=== PATIENT | female | born 1955 | race Caucasian/White ===

== ENCOUNTER 2016-03-23 14:41 | Outpatient (CLI) ==
[2012-07-24 09:18] VITALS: TEMP 99.1
[2015-09-05 12:07] VITALS: BMI 26.8
[2016-03-23 15:13] LABS: BASOPHILS # (AUTO) 0.1 K/uL (0-0.2); BASOPHILS % (AUTO) 0.9 % (0.0-3.0); EOSINOPHILS # (AUTO) 0.5 K/ul (0.0-0.7); EOSINOPHILS % (AUTO) 6.4 % (0.0-7.0); HEMATOCRIT 39.9 % (37.0-47.0); HEMOGLOBIN 13.3 g/dl (12.0-16.0); IMMATURE GRANULOCYTE % (AUTO) 0.1 % (0.0-5.0); LYMPHOCYTES # (AUTO) 3.9 K/uL (0.60-3.4); LYMPHOCYTES % (AUTO) 45.4 (10.0-50.0); MEAN CORPUSCULAR HEMOGLOBIN 30.6 pg (27.0-31.0); MEAN CORPUSCULAR HGB CONC 33.3 (31.8-35.4); MEAN CORPUSCULAR VOLUME 91.9 fl (81.0-99.0); MONOCYTES # (AUTO) 0.8 K/uL (0.4-2.0); MONOCYTES % (AUTO) 9.4 (0-10); NEUTROPHILS # (AUTO) 3.2 K/ul (2.0-6.9); NEUTROPHILS % (AUTO) 37.8; PLATELET COUNT 269 10^3/uL (140-440); RED BLOOD COUNT 4.34 10^6/ul (4.20-5.40)
[2016-03-23 15:20] LABS: ALBUMIN 3.7 g/dL (3.4-5.0); ALBUMIN/GLOBULIN RATIO 1.03; ANION GAP 12.9; BILIRUBIN,TOTAL 0.18 mg/dL (0.00-1.20); BUN/CREATININE RATIO 12.94; CALCIUM 9.6 mg/dL (8.2-10.2); CREATININE 0.85 mg/dL (0.60-1.30); POTASSIUM 3.9 mmol/L (3.5-5.10); TOTAL PROTEIN 7.3 g/dL (6.4-8.2)
--- NOTE | 2016-03-23 15:51 | DI ---
EXAM: Cervical spine three view HISTORY: Cevicalgia COMPARISON: None TECHNIQUE: Three-view cervical spine were performed FINDINGS: Vertebral bodies normal height. No fracture. Multilevel marginal osteophyte formation. Multilevel intervertebral space narrowing with mild to moderate intervertebral disc is narrowing at C4-C5 and C5-C6 and C6-C7. Multilevel facet and uncovertebral hypertrophy. No subluxation. Strai ghtening of the normal cervical lordosis. Prevertebral soft tissues appear normal. IMPRESSION: 1. Chronic discogenic degenerative disease and facet arthrosis 2. Straightening of the normal cervical lordosis.
== END 2016-03-23 14:42 | disposition home or self-care (01) ==
LOC: RAD 14:41
PROVIDERS: ATTEND General Practice
DX: E78.5 Hyperlipidemia, unspecified (principal); I10 Essential (primary) hypertension; E11.9 Type 2 diabetes mellitus without complications; R53.83 Other fatigue; M54.2 Cervicalgia; F19.20 Other psychoactive substance dependence, uncomplicated; M54.5 Low back pain
CPT/HCPCS: 36415; 80053; 80061; 83036; 84443; 85025

== ENCOUNTER 2016-04-12 09:59 | Emergency (ER) ==
[2016-04-12 10:03] VITALS: BP 144/80; TEMP 97.3; BMI 26.6
--- NOTE | 2016-04-12 10:35 | ED.PDOC ---
General ED Provider: Dr. LASHA HA JR Chief Complaint: Earache Stated Complaint: states she might have a bug in her right ear, complains of itching, aching, and making her dizzy. states when it first started felt like something moving around in her ear. [ End ] Time Seen by Physician: 10:29 Mode of Arrival: Walk-In Information Source: Patient Exam Limitations: No limitations Primary Care Provider[facility] Nursing and Triage Documentation Reviewed and Agree: No EENT Complaint Exam - Ear Complaint/Exam Onset/Duration: 3d Symptoms Are: Still present Timing: Intermittent Initial Severity: Moderate Current Severity: Moderate Character: Reports: Dizzy, Dull pain Aggravating: Reports: Foreign body Alleviating: Reports: None Associated Signs and Symptoms: Denies: Ear trauma, Ear swelling, Discharge, Fever, Hearing loss, Bleeding, Sore throat, Headache, URI symptoms, Foreign body sensation, Rash, Pain to external ear, Pain to external face Ear Surgical History: None Vesicles to External Pinna: No Vesicles to Tragus: No TMJ Tenderness: None Mastoid Tenderness: None Tragal Tenderness: None External Canal: Normal Material in Canal: Present: Cerumen (right) Differential Diagnoses: Otitis Externa (left ear ), Abrasion (right ear) Review of Systems - Review Of Systems Constitutional: Reports: No symptoms Eyes: Reports: No symptoms Ears, Nose, Mouth, Throat: Reports: Ear pain Respiratory: Reports: No symptoms Cardiac: Reports: No symptoms GI: Reports: No symptoms : Reports: No symptoms Musculoskeletal: Reports: No symptoms Skin: Reports: No symptoms Neurological: Reports: No symptoms All Other Systems: Other Past Medical History - Past Medical History Previously Healthy: No Endocrine: Reports: DM 2, Dyslipidemia Cardiovascular: Reports: CAD, [place], Hypertension Respiratory: Reports: None Hematological: Reports: None Gastrointestinal: Reports: None Genitourinary: Reports: None Neuro/Psych: Reports: None Musculoskeletal: Reports: None Cancer: Reports: None Last Menstrual Period: none Other Pertinent Past Medical History: HEART ATTACK 2007 - Surgical History General Surgical History: Reports: Hysterectomy, Tubal ligation, Cholecystectomy , Other (BLADDER SX), Unknown - Family History Family History: Reports: Unknown - Social History Smoking Status: Current every day smoker, Heavy tobacco smoker Hx Substance Use: No Alcohol Screening: None Physical Exam - Physical Exam Appearance: Well-appearing Pain Distress: Moderate Eyes: GINO ENT: Nose normal, Oropharynx normal, Erythema Neck: Supple Respiratory: Airway patent, Breath sounds clear, Breath sounds equal, Respirations nonlabored Procedures - Cerumen Removal Location: Right ear Instrument Used: Otoscope, Other Irrigation Used: No Results: Wax, Other (sligth BRB) Pain Successfully Reduced: No (change in character) Critical Care Note - Critical Care Note Total Time (mins): 0 Course - Course Vital Signs: Temp Pulse Resp BP Pulse Ox 04/12/16 09:59 97.3 F L 68 18 144/80 H 96 Departure - Departure Time of Disposition: 10:39 Disposition: HOME SELF-CARE Discharge Problem: Excessive cerumen in right ear canal Otitis externa Qualifiers: Laterality: left Chronicity: acute Instructions: Otitis Externa (ED) Condition: Good Pt referred to PMD for follow-up: Yes Additional Instructions: recommend operator bearer systems exam of right ear return if worse Cortisporin drops for three days Motrin or Aleve for pain for one or two days return if worse Allergies/Adverse Reactions: Allergies codeine Adverse Reaction (Verified 04/12/16 10:04) FEELS FUNNY morphine Adverse Reaction (Verified 04/12/16 10:04) Itching sulfamethoxazole [From Bactrim] Adverse Reaction (Verified 04/12/16 10:04) PASSED OUT trimethoprim [From Bactrim] Adverse Reaction (Verified 04/12/16 10:04) PASSED OUT Home Medications: Ambulatory Orders Aspirin [Aspirin EC] 81 mg PO DAILY 07/22/12 Clopidogrel Bisulfate [Clopidogrel] 75 mg PO EVERY OTHER DAY 05/04/14 Hydrocodone Bit/Acetaminophen [[place] 5-325] 1 tab PO BID PRN 10/29/14 Amlodipine Besylate 5 mg PO d 08/10/15 Bupropion HCl [Wellbutrin Sr] 150 mg PO BEDTIME #30 09/24/15 Lorazepam 0.5 mg PO BID #60 09/24/15 Trazodone HCl 100 mg PO PRN PRN #30 09/24/15 Atenolol 50 mg PO DAILY #30 tab-cap 02/16/16 Cyclobenzaprine HCl 10 mg PO BID PRN #30 tab-cap 02/16/16 Fenofibrate [Triglide] 160 mg PO DAILY #30 tab-cap 02/16/16 Simvastatin 20 mg PO BEDTIME #30 tab-cap 02/16/16 Neomycin/Polymyxin B/Hc Otic [Cortisporin Otic Susp] 4 drop OT Q6H #1 bottle
[2016-04-12] MEDS ORDERED: CORTISPORIN OTIC SUSP OT ONE ×2 (10:37→10:46)
== END 2016-04-12 10:58 | disposition home or self-care (01) ==
LOC: ED 09:59
DX: H60.502 Unspecified acute noninfective otitis externa, left ear (principal); H61.21 Impacted cerumen, right ear; F17.210 Nicotine dependence, cigarettes, uncomplicated
CPT/HCPCS: 99282

== ENCOUNTER → 2016-05-10 | Outpatient (POV) ==
[2012-07-24 09:18] VITALS: TEMP 99.1
[2016-04-12 10:03] VITALS: BMI 26.6
== END ==
LOC: OUTPT 00:01
PROVIDERS: ATTEND Otolaryngology
DX: H91.90 Unspecified hearing loss, unspecified ear (principal)
CPT/HCPCS: 92557; 92567

== ENCOUNTER 2016-07-17 12:48 | Emergency (ER) ==
[2016-07-17 12:49] VITALS: BMI 26.6
[2016-07-17 12:54] VITALS: BP 148/88; TEMP 98.4
--- NOTE | 2016-07-17 13:07 | ED.PDOC ---
General ED Provider: Dr. LASHA HA JR Chief Complaint: Abdominal Pain Stated Complaint: pain to left lower quad--pain sharp is constant--had emesis-- hx gerd--no diarrhea or fever--has nausea[End]since last night 98.4 84 16 93% 148/88 7/10 diffuse abd tenderness worst in LLQ no prior episodes has had dysuria itching onfrequent incontinence urine in past Time Seen by Physician: 13:06 Mode of Arrival: Walk-In Information Source: Patient Exam Limitations: No limitations [facility] and T[facility] Documentation Reviewed and Agree: No Review of Systems - Review Of Systems Constitutional: Reports: Malaise Eyes: Reports: No symptoms Ears, Nose, Mouth, Throat: Reports: No symptoms Respiratory: Reports: No symptoms Cardiac: Reports: No symptoms GI: Reports: Abdominal pain, Nausea : Reports: Dysuria, Frequency, Pain Musculoskeletal: Reports: No symptoms Skin: Reports: No symptoms Neurological: Reports: No symptoms Endocrine: Reports: No symptoms Hematologic/Lymphatic: Reports: No symptoms All Other Systems: Other Past Medical History - Past Medical History Previously Healthy: No Endocrine: Reports: DM 2, Dyslipidemia Cardiovascular: Reports: CAD, [place] (HEART ATTACK 2007), Hypertension Respiratory: Reports: None Hematological: Reports: None Gastrointestinal: Reports: GERD Genitourinary: Reports: None Neuro/Psych: Reports: None Musculoskeletal: Reports: None Cancer: Reports: None Last Menstrual Period: hysterectomy Other Pertinent Past Medical History: HEART ATTACK 2007 - Surgical History General Surgical History: Reports: Hysterectomy, Tubal ligation, Cholecystectomy , Other (BLADDER SX), Unknown - Family History Family History: Reports: Unknown - Social History Smoking Status: Current every day smoker, Heavy tobacco smoker Hx Substance Use: No Alcohol Screening: None Physical Exam - Physical Exam Appearance: Well-appearing Pain Distress: Moderate Eyes: GINO, EOMI, Conjunctiva clear ENT: Ears normal, Nose normal, Oropharynx normal Neck: Supple Respiratory: Airway patent, Breath sounds equal, Respirations nonlabored, Rhonchi Cardiovascular: RRR, Pulses normal, No rub, No murmur GI/: Soft, No masses, Tender, Bowel sounds hypoactive Musculoskeletal: Normal strength, ROM intact, No edema, No calf tenderness Skin: Warm, Dry, Normal color Neurological: Sensation intact, Motor intact, Reflexes intact, Cranial nerves intact, Alert, Oriented Psychiatric: Affect appropriate, Mood appropriate Interpretation - Radiology Interpretation Radiology Interpretation By: Radiologist Radiology Results: Negative Exam Interpreted: CT Scan (abdomen) Critical Care Note - Critical Care Note Total Time (mins): 0 Course - Course Hematology/Chemistry: 07/17/16 13:10 07/17/16 13:10 Orders, Labs, Meds: Lab Review 07/17/16 07/17/16 13:05 13:10 WBC 7.66 RBC 4.55 Hgb 14.0 Hct 41.1 MCV 90.3 MCH 30.8 MCHC 34.1 RDW Coeff of Sorin 13.2 Plt Count 246 Immature Gran % (Auto) 0.1 Neut % (Auto) 41.7 Lymph % (Auto) 41.6 [place] % (Auto) 10.2 H Eos % (Auto) 5.6 Baso % (Auto) 0.8 Immature Gran # (Auto) 0.0 Neut # 3.2 Lymph # 3.2 [place] # 0.8 Eos # 0.4 Baso # 0.1 Sodium 140 Potassium 3.7 Chloride 104 Carbon Dioxide 26 Anion Gap 13.7 BUN 9 Creatinine 0.81 Estimated GFR (MDRD) 73.00 BUN/Creatinine Ratio 11.11 Glucose 89 Calcium 9.6 Total Bilirubin 0.27 AST 28 ALT 33 Alkaline Phosphatase 48 Total Protein 7.5 Albumin 3.9 Globulin 3.6 Albumin/Globulin Ratio 1.08 Amylase 66 Lipase 38 Urine Color Yellow Urine Clarity Slightly Urine pH 8.5 Ur Specific [place] 1.015 Urine Protein Negative Urine Glucose (UA) Trace Urine Ketones Negative Urine Blood Negative Urine Nitrite Negative Urine Bilirubin Negative Urine Urobilinogen 0.2 Ur Leukocyte Esterase Negative Ur Squamous Epith Cells Not present Amorphous Sediment 2+ H. pylori IgG Antibody Negative Orders Category Date Time Status ED IV/MEDIPORT/POWERPORT .ONCE EMERGENCY 07/17/16 13:05 Active AMYLASE Stat LAB 07/17/16 13:10 Completed CBC W/ AUTO DIFF Stat LAB 07/17/16 13:10 Completed COMPREHENSIVE METABOLIC PANEL Stat LAB 07/17/16 13:10 Completed H. PYLORI SCREEN Stat LAB 07/17/16 13:10 Completed LIPASE Stat LAB 07/17/16 13:10 Completed URINALYSIS C & S IF INDICATED Stat LAB 07/17/16 13:05 Completed 0.9 % Sodium Chloride [Saline Flush] MEDS 07/17/16 13:05 Ordered 1 syr IVF PRN PRN CT ABDOMEN/PELVIS WO CONTRAST Stat RADS 07/17/16 13:05 Completed Medications Generic Name Dose Route Start Last Admin Trade Name Keisha PRN Reason Stop Dose Admin Sodium Chloride 1 syr 07/17/16 13:05 Saline Flush IVF PRN PRN To flush IV Vital Signs: Temp Pulse Resp BP Pulse Ox 07/17/16 12:49 98.4 F 84 16 148/88 H 93 L Departure - Departure Time of Disposition: 14:09 Disposition: HOME SELF-CARE Discharge Problem: Abdominal pain Instructions: Acute Abdominal Pain (ED), Abdominal Pain (ED) Condition: Good Pt referred to PMD for follow-up: Yes Additional Instructions: follow up with your physician discuss abdominal pain discuss vaginal symptoms consider pelvic exam Flagyl (antibiotic) for symptoms consistent with diverticulitis no diverticulitis on CT scan Allergies/Adverse Reactions: Allergies codeine Adverse Reaction (Verified 07/17/16 12:57) FEELS FUNNY morphine Adverse Reaction (Verified 07/17/16 12:57) Itching sulfamethoxazole [From Bactrim] Adverse Reaction (Verified 07/17/16 12:57) PASSED OUT trimethoprim [From Bactrim] Adverse Reaction (Verified 07/17/16 12:57) PASSED OUT Home Medications: Ambulatory Orders Aspirin [Aspirin EC] 81 mg PO DAILY 07/22/12 Clopidogrel Bisulfate [Clopidogrel] 75 mg PO EVERY OTHER DAY 05/04/14 Hydrocodone Bit/Acetaminophen [[place] 5-325] 1 tab PO BID PRN 10/29/14 Bupropion HCl [Wellbutrin Sr] 150 mg PO BEDTIME #30 09/24/15 Lorazepam 0.5 mg PO BID #60 09/24/15 Trazodone HCl 100 mg PO PRN PRN #30 09/24/15 Cyclobenzaprine HCl 10 mg PO BID PRN #30 tab-cap 02/16/16 Fenofibrate [Triglide] 160 mg PO DAILY #30 tab-cap 02/16/16 Simvastatin 20 mg PO BEDTIME #30 tab-cap 02/16/16
[2016-07-17 13:15] LABS: BASOPHILS # (AUTO) 0.1 K/uL (0-0.2); BASOPHILS % (AUTO) 0.8 % (0.0-3.0); EOSINOPHILS # (AUTO) 0.4 K/ul (0.0-0.7); EOSINOPHILS % (AUTO) 5.6 % (0.0-7.0); HEMATOCRIT 41.1 % (37.0-47.0); IMMATURE GRANULOCYTE % (AUTO) 0.1 % (0.0-5.0); LYMPHOCYTES # (AUTO) 3.2 K/uL (0.60-3.4); LYMPHOCYTES % (AUTO) 41.6 (10.0-50.0); MEAN CORPUSCULAR HEMOGLOBIN 30.8 pg (27.0-31.0); MEAN CORPUSCULAR HGB CONC 34.1 (31.8-35.4); MEAN CORPUSCULAR VOLUME 90.3 fl (81.0-99.0); MONOCYTES # (AUTO) 0.8 K/uL (0.4-2.0); MONOCYTES % (AUTO) 10.2 (0-10); NEUTROPHILS # (AUTO) 3.2 K/ul (2.0-6.9); NEUTROPHILS % (AUTO) 41.7; PLATELET COUNT 246 10^3/uL (140-440); RED BLOOD COUNT 4.55 10^6/ul (4.20-5.40); WHITE BLOOD COUNT 7.66 K/ul (4.6-10.2)
[2016-07-17 13:26] LABS: H. PYLORI ANTIBODY NEGATIVE (NEGATIVE); H.PYLORI INTERNAL QC INTERNAL QC VALID
[2016-07-17 13:30] LABS: BILIRUBIN,URINE Negative (NEGATIVE); KETONES,URINE Negative (NEGATIVE); LEUKOCYTE ESTERASE ,URINE Negative (NEGATIVE); NITRITE,URINE Negative (NEGATIVE); PH,URINE 8.5 (5-9); PROTEIN,URINE Negative (NEGATIVE); URINE, BLOOD Negative (NEGATIVE)
[2016-07-17 13:32] LABS: ADD URINE MICROSCOPIC YES
--- NOTE | 2016-07-17 13:34 | CT ---
EXAM: CT of the abdomen pelvis without contrast History: Left lower quadrant abdominal pain and vomiting. Comparison: CT abdomen pelvis 10/29/2014 Technique: Multiplanar CT images through the abdomen pelvis were obtained without the administratio n of IV contrast Findings: Lung bases are free of consolidation. No acute osseous abnormalities. A small hiatal hernia. No renal stones and no hydronephrosis. No renal stones and no hydronephrosis . No peripancreatic inflammation. Adrenal glands are unremarkable. Status post cholecystectomy. No focal liver or splenic lesions. No bowel obstruction. Scattered colonic stool. No bladder wall thickening. Uterus is not seen. No adnexal masses. No perirectal inflammation. No inflammatory stranding. Atherosclerotic vascular calcifications. Impression: No acute intra-abdominal or pelvic process.
[2016-07-17 13:51] LABS: ALBUMIN 3.9 g/dL (3.4-5.0); ALBUMIN/GLOBULIN RATIO 1.08; ANION GAP 13.7; BILIRUBIN,TOTAL 0.27 mg/dL (0.00-1.20); BUN/CREATININE RATIO 11.11; CALCIUM 9.6 mg/dL (8.2-10.2); CREATININE 0.81 mg/dL (0.60-1.30); POTASSIUM 3.7 mmol/L (3.5-5.10); TOTAL PROTEIN 7.5 g/dL (6.4-8.2)
== END 2016-07-17 14:23 | disposition home or self-care (01) ==
LOC: ED 12:48
DX: R10.32 Left lower quadrant pain (principal); R11.2 Nausea with vomiting, unspecified; R30.0 Dysuria; R35.0 Frequency of micturition; E11.9 Type 2 diabetes mellitus without complications; E78.5 Hyperlipidemia, unspecified; I25.10 Atherosclerotic heart disease of native coronary artery without angina pectoris; I10 Essential (primary) hypertension; K21.9 Gastro-esophageal reflux disease without esophagitis; I25.2 Old myocardial infarction; F17.210 Nicotine dependence, cigarettes, uncomplicated; Z79.899 Other long term (current) drug therapy
CPT/HCPCS: 36415; 80053; 81001; 82150; 83690; 85025; 86677; 99283

== ENCOUNTER 2016-08-04 17:33 | Outpatient (CLI) ==
[2012-07-24 09:18] VITALS: TEMP 99.1
== END 2016-08-04 17:34 | disposition home or self-care (01) ==
LOC: CAR 17:33
PROVIDERS: ATTEND Physician Assistant
DX: G47.30 Sleep apnea, unspecified (principal)
CPT/HCPCS: 95810

== ENCOUNTER 2016-08-05 09:56 | Outpatient (CLI) ==
[2012-07-24 09:18] VITALS: TEMP 99.1
--- NOTE | 2016-08-08 12:15 | MAMMO ---
EXAM: Digital screening mammogram HISTORY: Screening COMPARISON: 11/30/2014 FINDINGS: Digital MLO and CC views of the right and left breast were performed. There are scatter ed fibroglandular densities. Stable benign bilateral calcifications. There is a right breast asymme try in the medial breast 6.5 cm from the nipple, CC view. There is no evidence for mass, asymmetry, distortion, or suspicious calcifications in left breast. IMPRESSION: 1. Right breast asymmetry. Recommend diagnostic mammogram and possible ultrasound for further eval uation 2. No mammographic evidence of malignancy left breast. BIRADS category 0, incomplete
== END 2016-08-05 09:57 | disposition home or self-care (01) ==
LOC: RAD 09:56
PROVIDERS: ATTEND Physician Assistant
DX: Z12.31 Encounter for screening mammogram for malignant neoplasm of breast (principal)

== ENCOUNTER 2016-10-04 16:07 | Outpatient (CLI) ==
[2012-07-24 09:18] VITALS: TEMP 99.1
== END 2016-10-04 16:08 | disposition home or self-care (01) ==
LOC: CAR 16:07
PROVIDERS: ATTEND Physician Assistant
DX: G47.33 Obstructive sleep apnea (adult) (pediatric) (principal)
CPT/HCPCS: 95811

== ENCOUNTER 2016-12-30 15:30 | Outpatient (CLI) ==
[2012-07-24 09:18] VITALS: TEMP 99.1
[2016-12-30 15:54] LABS: BASOPHILS # (AUTO) 0.1 K/uL (0-0.2); BASOPHILS % (AUTO) 0.8 % (0.0-3.0); EOSINOPHILS # (AUTO) 0.4 K/ul (0.0-0.7); EOSINOPHILS % (AUTO) 3.6 % (0.0-7.0); HEMATOCRIT 43.8 % (37.0-47.0); HEMOGLOBIN 14.6 g/dl (12.0-16.0); IMMATURE GRANULOCYTE % (AUTO) 0.2 % (0.0-5.0); LYMPHOCYTES # (AUTO) 3.7 K/uL (0.60-3.4); MEAN CORPUSCULAR HEMOGLOBIN 30.2 pg (27.0-31.0); MEAN CORPUSCULAR HGB CONC 33.3 (31.8-35.4); MEAN CORPUSCULAR VOLUME 90.7 fl (81.0-99.0); MONOCYTES # (AUTO) 0.9 K/uL (0.4-2.0); MONOCYTES % (AUTO) 9.2 (0-10); NEUTROPHILS # (AUTO) 4.6 K/ul (2.0-6.9); NEUTROPHILS % (AUTO) 48.2; PLATELET COUNT 298 10^3/uL (140-440); RED BLOOD COUNT 4.83 10^6/ul (4.20-5.40); WHITE BLOOD COUNT 9.63 K/ul (4.6-10.2)
[2016-12-30 17:37] LABS: ALBUMIN 3.9 g/dL (3.4-5.0); ALBUMIN/GLOBULIN RATIO 0.85; ANION GAP 14.1; BILIRUBIN,TOTAL 0.16 mg/dL (0.00-1.20); BUN/CREATININE RATIO 13.33; CALCIUM 10.8 mg/dL (8.2-10.2); CHOL/HDL RATIO 4.6 (4.5-5.5); CREATININE 0.75 mg/dL (0.60-1.30); POTASSIUM 4.1 mmol/L (3.5-5.10); TOTAL PROTEIN 8.5 g/dL (6.4-8.2)
== END 2016-12-30 15:31 | disposition home or self-care (01) ==
LOC: NONPT 15:30
PROVIDERS: ATTEND Emergency Medicine
DX: E11.69 Type 2 diabetes mellitus with other specified complication (principal); I10 Essential (primary) hypertension; I21.3 ST elevation (STEMI) myocardial infarction of unspecified site
CPT/HCPCS: 80053; 80061; 83036; 84443; 85025

== ENCOUNTER 2017-03-14 14:00 | Outpatient (RCR) ==
[2012-07-24 09:18] VITALS: TEMP 99.1
--- NOTE | 2017-02-21 16:17 | RS.OPPTEV2 ---
Date of Note: 02/21/17 Visit #: 1 Date of Evaluation: 02/21/17 Payer Source: Medicaid Date of Onset/Injury/Change in Status: 02/11/17 Surgery Performed?: No Treatment Diagnosis: CVA with R sided weakness History of Condition/Mechanism of Injury:: pt reports she was at [employer] waiting to see her daughter who works there and lost her balance falling into a truck that was on display. pt states she noted her RLE and R UE were numb and drove herself to the hospital. Prior Level of Function.....Patient was independent with: ADL's, Self Care, Ambulation/Mobility, Community Integration/Access Functional Limitations: ADL's, Pulling, Lifting, Ambulation, Community Access/ Integration Current Subjective/complaints:: pt states she does not feel well today, reports that she has still been having headaches and just feeling weak. Treatment Side (optional): Right *Precautions: fall precautions Medical History Surgical History: Cholecystectomy, Hysterectomy Surgical History Comments:: coronary stent Smoking Status: Current every day smoker Hx Home Medications: simvastatin, lisinopril, atenolol, rantinidine, wellbutrin , blood thinner(unsure of the name) Patient's Goals: "get better" Pain Assessment - Pain Description Pain Location: headache Pain Description: Aching Current Pain Intensity: 7 Functional Outcome Measure LE Functional Scale: 39 (51%) - G Codes & Severity Modifier G Codes & Modifier: n/a Source of G Code score: n/a Observation - Observation Posture: Forward Head, Rounded Shoulders, Increased Thoracic Kyphosis Handedness: Right Gait - Gait Pattern General Gait Pattern Observation: Crouched Gait, Decrease Stride Lngth (R), Decrease Stride Lngth (L) Gait Comments: slight ataxic gait noted General Range of Motion: WFL's all 4 extr's Muscle Strength: BUE grossly 4+/5. RLE hip flex 3+/5, knee flex 3+/5, ext 4-/5 , ankle DF/PF 3+/5. LLE hip flex 4-/5, knee flex 4+/5, ext 4+/5, ankle DF/PF 4+ /5 Palpation Palpation Findings: None/Normal Sensation - Sensation Right Upper Extremity: Impaired Left Upper Extremity: Intact/Normal Right Lower Extremity: Impaired (pt with numbness and tingling RLE and RUE) Left Lower Extremity: Intact/Normal Balance - Sitting Balance Static Sitting Balance: Good Dynamic Sitting Balance: Good - Standing Balance Static Standing Balance: Fair Dynamic Standing Balance: Fair - Comments Balance Assessment Comments: TUG score 32 secs. Tinetti score 17/28. Balance master limits of stability time to complete 125secs Interventions - Exercise/Activities/Manual Therapy Exercises/Activities: pt performed BLE AP, LAQ, seated hip flex, ball squeezes x 5-10 reps Manual Therapy: n/a HOME EXERCISE PROGRAM: pt given written HEP including AP, LAQ, seated hip flex, ball squeezes and given yellow theraputty for R hand. - Charges Timed Code Treatment Minutes: 52 Total Treatment Time: 64 Procedures billed for this date of service:: eval med Assessment Assessment: pt presents with decreased strength, balance, as well as gait instability s/p CVA. pt also with decreased fine motor skills with R hand. Patient Education: Home Exercise Program, Education of Plan of Care Rehab Potential: Good Short Term Goals Goal #1: pt demonstrate improved RLE strength 4- to 4/5 Goal to be met by: 03/07/17 Goal #2: pt amb in dept with improved gait sequencing with no LOB Goal to be met by: 03/07/17 Goal #3: pt with improved TUG score <30 sec Goal to be met by: 03/07/17 Community Health Agent Goals Goal #1: pt demonstrates improved RLE strength 4/5 and independent with HEP Goal to be met by: 03/23/17 Goal #2: pt demonstrate improved dyn stand balance as noted by tinetti Goal to be met by: 03/23/17 Goal #3: pt amb functional distances with no LOB and improved sequencing Goal to be met by: 03/23/17 Goal #4: LE functional index score >50 Goal to be met by: 03/23/17 Plan - Treatment to be Provided Procedures: Therapeutic Exercises, Therapeutic Activity, Gait Training, Neuromuscular Rehab, Patient Education Modalities: Cryotherapy, Hot Packs - Treatment Plan Frequency: 2 X week Duration: 4 weeks ORDER # VISITS AND/OR THROUGH DATE: 03/24/16 - Treatment Code (1) CVA (cerebral vascular accident) Code(s): I63.9 - CEREBRAL INFARCTION, UNSPECIFIED Qualifiers: CVA mechanism: unspecified Qualified Code(s): I63.9 - Cerebral infarction, unspecified Comments: I 63.9 (2) Generalized weakness Code(s): R53.1 - WEAKNESS Comments: R53.1 (3) Gait abnormality Code(s): R26.9 - UNSPECIFIED ABNORMALITIES OF GAIT AND MOBILITY
--- NOTE | 2017-02-23 14:45 | RS.OPPTDN ---
Subjective Date of Note: 02/23/17 Visit #: 2 Date of Evaluation: 02/21/17 Payer Source: Medicaid Treatment Diagnosis: CVA with R sided weakness Current Subjective/complaints:: pt states she still feels weak, but has been trying to do her ex. *Precautions: fall precautions Interventions - Exercise/Activities/Manual Therapy Exercises/Activities: pt rode bike x 5 mins. Performed QS and ball squeezes 2 sets of 10 reps, HS, hip abd/add, SAQ, LAQ, seated marching, with 1lb weight 2 sets of 10 reps, standing forward lunges x 10 reps Total minutes of Exercise: 48 Manual Therapy: n/a HOME EXERCISE PROGRAM: pt given written HEP including AP, LAQ, seated hip flex, ball squeezes and given yellow theraputty for R hand. - Objective Findings Observations,measurements,etc.: pt amb 120ft without AD with no LOB, continues with decreased JENNIFER and requires cues to correct. - Charges Timed Code Treatment Minutes: 48 Total Treatment Time: 58 Procedures billed for this date of service:: exercise 3 Assessment: pt progressing with increased endurance as well as improved balance with amb. Patient Education: Education of Plan of Care Patient demonstrates compliance with HEP?: Yes Short Term Goals Goal #1: pt demonstrate improved RLE strength 4- to 4/5 Goal to be met by: 03/07/17 Progress towards Goal:: Progressing Goal #2: pt amb in dept with improved gait sequencing with no LOB Goal to be met by: 03/07/17 Progress towards Goal:: Progressing Goal #3: pt with improved TUG score <30 sec Goal to be met by: 03/07/17 Progress towards Goal:: Progressing Alf Goals Goal #1: pt demonstrates improved RLE strength 4/5 and independent with HEP Goal to be met by: 03/23/17 Goal #2: pt demonstrate improved dyn stand balance as noted by tinetti Goal to be met by: 03/23/17 Goal #3: pt amb functional distances with no LOB and improved sequencing Goal to be met by: 03/23/17 Goal #4: LE functional index score >50 Goal to be met by: 03/23/17 Plan PLAN OF CARE EXPIRES ON:: 03/24/17 ORDER # VISITS AND/OR THROUGH DATE: 03/24/16 PLAN: Continue to progress with LE strengthening, balance.
--- NOTE | 2017-02-28 11:43 | RS.CXNS ---
Date of scheduled appointment: 02/28/17 Type: Cancel Reason for Cancel/NS: inclement weather
--- NOTE | 2017-03-02 15:46 | RS.OPPTDN ---
Subjective Date of Note: 03/02/17 Visit #: 3 Date of Evaluation: 02/21/17 Payer Source: Medicaid Treatment Diagnosis: CVA with R sided weakness Current Subjective/complaints:: Patient says she has been having occasional TIJERINA' s that are at the L side of her head and moves to her forehead. She says she is not dizzy, but just worried about the continued TIJERINA's. She says she is trying HEP. *Precautions: fall precautions Interventions - Exercise/Activities/Manual Therapy Exercises/Activities: Patient performs: QS, SAQ 1 1/2#, DF with several cues for correction using red tband, pillow squeezes, isometric hip abd, alternate LE lift 1 1/2# each, bridging. All 2x10. Sittin# wand for bilateral shoulder flexion, scap retraction with red tband, and marching x 10 each. Finished with stationary bike for/retro x 6 mins. Patient amb to the waiting room from our dept ~ 165 CGA. Slight unsteady without AD. Patient does lean once to the R. Total minutes of Exercise: 38 Manual Therapy: n/a HOME EXERCISE PROGRAM: pt given written HEP including AP, LAQ, seated hip flex, ball squeezes and given yellow theraputty for R hand. - Charges Timed Code Treatment Minutes: 38 Total Treatment Time: 38 Procedures billed for this date of service:: ex3 Assessment: Patient with c/o HAs that are L sided and to the forehead. BP was checked and WNL. She was able to perform all therex well with requiring verbal and tactile cues continuously for DF and isometric hip abd. Slight unsteadiness when amb to the waiting room while carrying her jacket. She leaned slightly to the R. Patient Education: Education of diagnosis, Home Exercise Program, Home Safety Patient demonstrates compliance with HEP?: Yes Short Term Goals Goal #1: pt demonstrate improved RLE strength 4- to 4/5 Goal to be met by: 03/07/17 Progress towards Goal:: Progressing Goal #2: pt amb in dept with improved gait sequencing with no LOB Goal to be met by: 03/07/17 Progress towards Goal:: Progressing Goal #3: pt with improved TUG score <30 sec Goal to be met by: 03/07/17 Progress towards Goal:: Progressing Lab Technologist Goals Goal #1: pt demonstrates improved RLE strength 4/5 and independent with HEP Goal to be met by: 03/23/17 Goal #2: pt demonstrate improved dyn stand balance as noted by tinetti Goal to be met by: 03/23/17 Goal #3: pt amb functional distances with no LOB and improved sequencing Goal to be met by: 03/23/17 Goal #4: LE functional index score >50 Goal to be met by: 03/23/17 Plan PLAN OF CARE EXPIRES ON:: 03/24/17 ORDER # VISITS AND/OR THROUGH DATE: 03/24/16 PLAN: Patient to continue to progress with therex to strengthen R LE and core muscles for bal.
--- NOTE | 2017-03-09 14:44 | RS.OPPTDN ---
Subjective Date of Note: 03/09/17 Visit #: 3 Date of Evaluation: 02/21/17 Payer Source: Medicaid Treatment Diagnosis: CVA with R sided weakness Current Subjective/complaints:: Patient says she only had some discomfort and fatigue to her legs from beginning therapy. Denies TIJERINA today, but asks to take her BP. She admits to being intermittently dizzy. She says she has been performing HEP about twice daily. *Precautions: fall precautions Pain Assessment - Pain Description Pain Location: muscle fatigue, discomfort Interventions - Exercise/Activities/Manual Therapy Exercises/Activities: Patient performs: QS, SAQ 1 1/2#, DF using red tband, pillow squeezes, hooklying hip abd red tband, alternate LE lift 1 1/2# each, bridging, trunk rotation to the R and L using red tband. All 2x10. Sittin # wand for bilateral shoulder flexion, scap retraction with red tband, heel/toe raises, alternate LE lift with bilateral shoulder flexion with 1# wand, LAQ and marching with 1 1/2# ea leg x 10 each. Finished with stationary bike for/retro x 6 mins. Patient amb to the waiting room from our dept ~ 165 CGA. Patient appears steadier today compared to previous visit. Total minutes of Exercise: 38 Manual Therapy: n/a HOME EXERCISE PROGRAM: pt given written HEP including AP, LAQ, seated hip flex, ball squeezes and given yellow theraputty for R hand. - Objective Findings Observations,measurements,etc.: BP to the L arm after supine therex: 140/82 - Charges Timed Code Treatment Minutes: 38 Total Treatment Time: 38 Procedures billed for this date of service:: ex3 Assessment: Patient was able to perform all therex without needing prompts or correction today. She is motivated to improve her strength by "Valentin Day. " She demo slight unsteadiness immediately upon standing and following exercises. BP slightly high per her reports based on measurement today. No TIJERINA today. Patient Education: Body/Joint mechanics, Home Exercise Program, Home Safety, Education of Plan of Care Patient demonstrates compliance with HEP?: Yes Short Term Goals Goal #1: pt demonstrate improved RLE strength 4- to 4/5 Goal to be met by: 03/07/17 Progress towards Goal:: Progressing Goal #2: pt amb in dept with improved gait sequencing with no LOB Goal to be met by: 03/07/17 Progress towards Goal:: Progressing Goal #3: pt with improved TUG score <30 sec Goal to be met by: 03/07/17 Progress towards Goal:: Progressing Penitentiary Goals Goal #1: pt demonstrates improved RLE strength 4/5 and independent with HEP Goal to be met by: 03/23/17 Goal #2: pt demonstrate improved dyn stand balance as noted by tinetti Goal to be met by: 03/23/17 Goal #3: pt amb functional distances with no LOB and improved sequencing Goal to be met by: 03/23/17 Goal #4: LE functional index score >50 Goal to be met by: 03/23/17 Plan PLAN OF CARE EXPIRES ON:: 03/24/17 ORDER # VISITS AND/OR THROUGH DATE: 03/24/16 PLAN: Patient to continue to receive therex and bal exercises to improve overall strength and gait.
--- NOTE | 2017-03-14 16:34 | RS.OPPTDN ---
Subjective Date of Note: 03/14/17 Visit #: 5 Date of Evaluation: 02/21/17 Payer Source: Medicaid Treatment Diagnosis: CVA with R sided weakness Current Subjective/complaints:: Patient says she has been trying to walk more. Says she notices soreness to her leg muscles. She continues to c/o TIJERINA that is mostly L sided and moves to the forehead. *Precautions: fall precautions Interventions - Exercise/Activities/Manual Therapy Exercises/Activities: Patient receives passive R HS, heel cord, and piriformis stretching, lower trunk rotation as well x 3. She performs: QS, SAQ 1 1/2#, DF using red tband, pillow squeezes, hooklying hip abd red tband, alternate LE lift 1 1/2# each, bridging, trunk rotation to the R and L using red tband. All 2x10. Sittin# wand for bilateral shoulder flexion, scap retraction with red tband, heel/toe raises, alternate LE lift with bilateral shoulder flexion with 1# wand, LAQ and marching with 1 1/2# ea leg x 10 each. Finished with stationary bike for/retro x 6 mins. Patient amb to the waiting room from our dept ~ 165' CGA. Total minutes of Exercise: 38 Manual Therapy: n/a HOME EXERCISE PROGRAM: pt given written HEP including AP, LAQ, seated hip flex, ball squeezes and given yellow theraputty for R hand. - Charges Timed Code Treatment Minutes: 38 Total Treatment Time: 38 Procedures billed for this date of service:: ex3 Assessment: Patient continues to progress with activity in the dept showing improved toleration and less fatigue. R LE demo some inflexibility, but improves with stretching today. She amb steadily out of the dept without AD. Patient does have ongoing L sided HAs that do move to the forehead, but no dizziness upon amb today. Patient Education: Education of diagnosis, Body/Joint mechanics, Home Exercise Program, Home Safety Patient demonstrates compliance with HEP?: Yes Short Term Goals Goal #1: pt demonstrate improved RLE strength 4- to 4/5 Goal to be met by: 03/07/17 Progress towards Goal:: Progressing Goal #2: pt amb in dept with improved gait sequencing with no LOB Goal to be met by: 03/07/17 Progress towards Goal:: Progressing Goal #3: pt with improved TUG score <30 sec Goal to be met by: 03/07/17 Progress towards Goal:: Progressing Tight Rope Walker Goals Goal #1: pt demonstrates improved RLE strength 4/5 and independent with HEP Goal to be met by: 03/23/17 Progress towards goal: Progressing Goal #2: pt demonstrate improved dyn stand balance as noted by michel Goal to be met by: 03/23/17 Goal #3: pt amb functional distances with no LOB and improved sequencing Goal to be met by: 03/23/17 Goal #4: LE functional index score >50 Goal to be met by: 03/23/17 Plan PLAN OF CARE EXPIRES ON:: 03/24/17 ORDER # VISITS AND/OR THROUGH DATE: 03/24/16 PLAN: Patient to continue to receive therex to strengthen bilateral LEs with focus on the R to aid in balanced gt.
== END 2017-03-15 ==
PROVIDERS: ATTEND Specialist
DX: I63.9 Cerebral infarction, unspecified (principal); I69.351 Hemiplegia and hemiparesis following cerebral infarction affecting right dominant side

== ENCOUNTER 2017-03-24 15:00 | Outpatient (RCR) ==
[2012-07-24 09:18] VITALS: TEMP 99.1
--- NOTE | 2017-03-16 16:21 | RS.OPPTDN ---
Subjective Date of Note: 03/16/17 Visit #: 6 Date of Evaluation: 02/21/17 Payer Source: Medicaid Treatment Diagnosis: CVA with R sided weakness Current Subjective/complaints:: Patient says that she walked to the store ~3 blocks yesterday. Reports she is actively trying to walk more and is performing HEP. *Precautions: fall precautions Pain Assessment - Pain Description Pain Location: bilateral anterior thigh soreness (general mm fatigue) Interventions - Exercise/Activities/Manual Therapy Exercises/Activities: Patient receives passive R HS, heel cord, and piriformis stretching, lower trunk rotation as well x 3. She performs: QS, SAQ increased to 2#, DF increased to green tband, pillow squeezes, hooklying hip abd red tband , alternate LE lift 1 1/2# each, bridging, trunk rotation to the R and L progressed to green tband. All 2x10. Sitting: Progressed to 2# wand for bilateral shoulder flexion, scap retraction with red tband, heel/toe raises, alternate LE lift with bilateral shoulder flexion with 2# wand, LAQ and marching with 1 1/2# ea leg x 10 each. Finished with stationary bike for/retro x 6 mins. Patient continues to amb to the waiting room to/from our dept without AD ~ 165' CGA. Total minutes of Exercise: 38 Manual Therapy: n/a HOME EXERCISE PROGRAM: pt given written HEP including AP, LAQ, seated hip flex, ball squeezes and given yellow theraputty for R hand. - Charges Timed Code Treatment Minutes: 38 Total Treatment Time: 38 Procedures billed for this date of service:: ex3 Assessment: Patient is amb in community without AD and with increased confidence /bal. She demo improved [place] to increasing LE/trunk strengthening in dept. She requires continued trunk strengthening to improve bal and amb. Patient Education: Education of diagnosis, Home Exercise Program Patient demonstrates compliance with HEP?: Yes Short Term Goals Goal #1: pt demonstrate improved RLE strength 4- to 4/5 Goal to be met by: 03/07/17 Progress towards Goal:: Progressing Goal #2: pt amb in dept with improved gait sequencing with no LOB Goal to be met by: 03/07/17 Progress towards Goal:: Progressing Goal #3: pt with improved TUG score <30 sec Goal to be met by: 03/07/17 Progress towards Goal:: Progressing Graphic Design Assistant Goals Goal #1: pt demonstrates improved RLE strength 4/5 and independent with HEP Goal to be met by: 03/23/17 Progress towards goal: Progressing Goal #2: pt demonstrate improved dyn stand balance as noted by michel Goal to be met by: 03/23/17 Goal #3: pt amb functional distances with no LOB and improved sequencing Goal to be met by: 03/23/17 Progress towards goal: Progressing Goal #4: LE functional index score >50 Goal to be met by: 03/23/17 Plan PLAN OF CARE EXPIRES ON:: 03/24/17 ORDER # VISITS AND/OR THROUGH DATE: 03/24/16 PLAN: Patient to continue to work on LE/trunk strength
--- NOTE | 2017-03-21 16:45 | RS.OPPTDN ---
Subjective Date of Note: 03/21/17 Visit #: 7 Date of Evaluation: 02/21/17 Payer Source: Medicaid Treatment Diagnosis: CVA with R sided weakness Current Subjective/complaints:: Patient says she is doing good. Reports she continues to see improvement with her walking and overall strength. She says she wants to continue therapy after her order is complete to gain further improvement. *Precautions: fall precautions Interventions - Exercise/Activities/Manual Therapy Exercises/Activities: Patient receives continued passive R HS, heel cord, and piriformis stretching, lower trunk rotation as well x 3. She performs: QS, SAQ 2#, DF green tband, pillow squeezes, hooklying hip abd green tband, alternate LE lift 2# each, bridging, trunk rotation to the R and L green tband. All 2x10 Sittin# wand for bilateral shoulder flexion, green tband for scap retraction 2x10. Stationary bike x 7 mins for and retro moderate speed. Sitting: Progressed to 2# wand for bilateral shoulder flexion, scap retraction with red tband, heel/toe raises, alternate LE lift with bilateral shoulder flexion with 2# wand, LAQ and marching with 1 1/2# ea leg x 10 each. Finished with stationary bike for/retro x 6 mins. Patient continues to amb to the waiting room to/from our dept without AD ~ 165' CGA. Manual Therapy: n/a HOME EXERCISE PROGRAM: pt given written HEP including AP, LAQ, seated hip flex, ball squeezes and given yellow theraputty for R hand. - Charges Timed Code Treatment Minutes: 38 Total Treatment Time: 38 Procedures billed for this date of service:: ex3 Assessment: Patient progressing well with all therex, maintaining good bal with sitting exercises, less posterior sway. No LOB. Patient Education: Body/Joint mechanics, Home Exercise Program, Education of Plan of Care Patient demonstrates compliance with HEP?: Yes Short Term Goals Goal #1: pt demonstrate improved RLE strength 4- to 4/5 Goal to be met by: 03/07/17 Progress towards Goal:: Progressing Goal #2: pt amb in dept with improved gait sequencing with no LOB Goal to be met by: 03/07/17 Progress towards Goal:: Progressing Goal #3: pt with improved TUG score <30 sec Goal to be met by: 03/07/17 Progress towards Goal:: Progressing Group Home Goals Goal #1: pt demonstrates improved RLE strength 4/5 and independent with HEP Goal to be met by: 03/23/17 Progress towards goal: Progressing Goal #2: pt demonstrate improved dyn stand balance as noted by michel Goal to be met by: 03/23/17 Goal #3: pt amb functional distances with no LOB and improved sequencing Goal to be met by: 03/23/17 Progress towards goal: Progressing Goal #4: LE functional index score >50 Goal to be met by: 03/23/17 Plan PLAN OF CARE EXPIRES ON:: 03/24/17 ORDER # VISITS AND/OR THROUGH DATE: 03/24/16 PLAN: Patient may benefit from receiving a continuation order for 2-3 more weeks to further improve strength and dynamic activities.
--- NOTE | 2017-03-24 16:28 | RS.OPPTDN ---
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 She is also taking out her trash and doing more light ADL's. States she is doing HEP. *Precautions: fall precautions Pain Assessment - Pain Description Worst Pain Intensity: Reports some mild back pain. Interventions - Exercise/Activities/Manual Therapy Exercises/Activities: Patient receives continued passive R HS, heel cord, and piriformis stretching, lower trunk rotation. QS, SAQ increased to 3#, DF green tband, pillow squeezes, hooklying hip abd green tband, alternate LE lifts increased to 3# each, bridging, green theraband for trunk rotation. All 2s/ 10reps. Sitting: Increased to 3# wand for bilateral shoulder flexion, green tband for scap retraction 2s/10reps. Standing balance and short distance walking with turns to challenge balance. Stationary bike x 7 mins for and retro moderate speed. Sitting: Progressed to 2# wand for bilateral shoulder flexion, scap retraction with red tband, heel/toe raises, alternate LE lift with bilateral shoulder flexion with 2# wand, LAQ and marching with 1 1/2# ea leg x 10 each. Finished with stationary bike for/retro x 6 mins. Patient continues to amb to the waiting room to/from our dept without AD ~ 165' CGA. Total minutes of Exercise: 42mins Manual Therapy: n/a HOME EXERCISE PROGRAM: pt given written HEP including AP, LAQ, seated hip flex, ball squeezes and given yellow theraputty for R hand. Green theraband scap retraction and bilateral hip abd in hook-lying. - Objective Findings Observations,measurements,etc.: TUG at 19 seconds x2reps. Tinetti score 14/16 Balance and 10/12 Gait for a total . - Charges Timed Code Treatment Minutes: 42mins Total Treatment Time: 44mins Procedures billed for this date of service:: EX3 Assessment: Patient has marked improvement in Tinetti and TUG scores. She is working on HEP and increasing functional activity level. Patient Education: Home Exercise Program, Home Safety, Activity Modification, Education of Plan of Care Comments: Patient advised treatment will be held until insurance approval is received as she has completed 8 sessions. Patient demonstrates compliance with HEP?: Yes Short Term Goals Goal #1: pt demonstrate improved RLE strength 4- to 4/5 Goal to be met by: 03/07/17 Progress towards Goal:: Met Goal #2: pt amb in dept with improved gait sequencing with no LOB Goal to be met by: 03/07/17 Progress towards Goal:: Met Goal #3: pt with improved TUG score <30 sec Goal to be met by: 03/07/17 Progress towards Goal:: Met Comments:: 19 sec Senior Living Goals Goal #1: pt demonstrates improved RLE strength 4/5 and independent with HEP Goal to be met by: 03/23/17 Progress towards goal: Met Comments: Right hip 4 to 4+/5, right knee 4+/5, and right ankle df 5/5 Goal #2: pt demonstrate improved dyn stand balance as noted by tinetti Goal to be met by: 03/23/17 Progress towards goal: Met Comments: Goal #3: pt amb functional distances with no LOB and improved sequencing Goal to be met by: 03/23/17 Progress towards goal: Met Goal #4: LE functional index score >50 Goal to be met by: 03/23/17 Progress towards goal: Progressing Plan PLAN OF CARE EXPIRES ON:: 03/24/17 ORDER # VISITS AND/OR THROUGH DATE: 03/24/16 PLAN: Hold per patients regular therapist pending further orders and visit approvals.
--- NOTE | 2017-03-27 11:19 | RS.QUICKDC ---
Discharge from PT Date of Discharge: 03/27/17 Number of Visits: 8 Reason for Discharge: Patient has attended all visits, met all goals, improved on LE Functional Index, TUG test, and Tinetti's. She is now walking more than 2 blocks to get her mail and taking out her trash. She has completed orders through alloted time period per Medicaid approval. Patient to continue with HEP progression.
== END 2017-04-12 ==
PROVIDERS: ATTEND Specialist
DX: I63.9 Cerebral infarction, unspecified (principal); R53.1 Weakness

== ENCOUNTER 2017-06-01 11:07 | Outpatient (CLI) ==
[2012-07-24 09:18] VITALS: TEMP 99.1
== END 2017-06-01 11:08 | disposition home or self-care (01) ==
LOC: RHC-LAB 11:07
PROVIDERS: ATTEND Emergency Medicine
DX: E11.69 Type 2 diabetes mellitus with other specified complication (principal); I10 Essential (primary) hypertension; I21.3 ST elevation (STEMI) myocardial infarction of unspecified site; M54.5 Low back pain; D64.9 Anemia, unspecified; F32.9 Major depressive disorder, single episode, unspecified
CPT/HCPCS: 36415; 80053; 80061; 83036; 84443; 85025

== ENCOUNTER 2017-07-09 09:58 | Emergency (ER) ==
[2017-07-09 10:03] VITALS: BP 135/87; TEMP 98.1; BMI 28.1
--- NOTE | 2017-07-09 10:46 | ED.PDOC ---
General ED Provider: Dr. ELIUD SIDDIQUI Chief Complaint: Urinary Problem Stated Complaint: Burning with urination. Onset 3 days, associated itching and burning of the periurethral and vaginal region. Denies vaginal discharge.Prev hx partial Hysterectomy; Ovaries remain. Denies fever chills or night sweats. Time Seen by Physician: 10:40 Mode of Arrival: Walk-In Information Source: Patient Exam Limitations: No limitations Primary Care Provider: JOON BENJAMIN Nursing and Triage Documentation Reviewed and Agree: Yes Reviewed sepsis parameters & appropriate labs ordered?: Yes System Inflammatory Response Syndrome: Not Applicable Sepsis Protocol: For patient's 13 years and over: Temp is 96.8 and below OR 101 and greater Pulse >90 BPM Resp >20/minute Acutely Altered Mental Status Are patient's symptoms suggestive of a new infection, such as: -Pneumonia -Skin, Soft Tissue -Endocarditis -UTI -Bone, Joint Infection -Implantable Device -Acute Abdominal Infection -Wound Infection -Meningitis -Blood Stream Catheter Infection -Unknown System Inflammatory Response Syndrome: Not Applicable Complaint Exam - UTI Female Complaint/Exam Patient Complains of: Reports: Painful urination Onset/Duration: 2days Symptoms Are: Still present Timing: Constant Initial Severity: Moderate Current Severity: Moderate Location of Pain: Reports: Vulva, Diffuse, Suprapubic Associated Signs and Symptoms: Denies: Fever, Chills, Flank pain, Dyspareunia, Vaginal discharge Related History: Denies: Similar episode, Ectopic, Prior STD Hx, Bubble bath use Related Surgical History: Reports: Hysterectomy CVA Tenderness: No Suprapubic Tenderness: Yes Vulva Exam: Absent: Normal Findings Differential Diagnoses: Bladder Dysfunction, Candidiasis, Other (UTI) - Complaint/Exam Patient Complains of: Reports: Pain (discomfort in vaginal region ), Dysuria ( itching) Symptoms Are: Still present Timing: Constant Initial Severity: Moderate Current Severity: Moderate Location of Pain: Reports: Vulva Character: Reports: Burning Aggravating: Reports: Movement Alleviating: Reports: None (bathing alleviates to somedegree) Associated Signs and Symptoms: Reports: Dysuria, Genital swelling (reddness and irritatbilty) Related History: Reports: Similar episode Ectopic Risk Factors: Reports: None Ovarian Torsion Risk Factors: Reports: None Surgical Obstruction Risk Factors: Reports: None Related Surgical History: Reports: None Abdominal Findings: Present: None Vulva Exam: Present: Labial erythema, Labial swelling Vaginal Exam: Present: Discharge Cervical Exam: Absent: Normal findings Adnexal Exam: Absent: Normal Findings Rectal Exam: Absent: Normal Findings Differential Diagnoses: UTI, Other (monilia vaginitis) Review of Systems - Review Of Systems Constitutional: Reports: No symptoms Eyes: Reports: No symptoms Ears, Nose, Mouth, Throat: Reports: No symptoms Respiratory: Reports: No symptoms Cardiac: Reports: No symptoms GI: Reports: No symptoms : Reports: Burning, Dysuria, Frequency, Pain, Urgency. Denies: Discharge, Flank pain, Hematuria, Incontinence Musculoskeletal: Reports: No symptoms Skin: Reports: No symptoms Neurological: Reports: No symptoms Endocrine: Reports: No symptoms Hematologic/Lymphatic: Reports: No symptoms All Other Systems: Reviewed and Negative Past Medical History - Past Medical History Previously Healthy: No Endocrine: Reports: DM 2, Dyslipidemia Cardiovascular: Reports: CAD, [place] (HEART ATTACK 2007), Hypertension Respiratory: Reports: None Hematological: Reports: None Gastrointestinal: Reports: GERD Genitourinary: Reports: None Neuro/Psych: Reports: None Musculoskeletal: Reports: None Cancer: Reports: None Last Menstrual Period: hysterectomy Other Pertinent Past Medical History: HEART ATTACK 2007 - Surgical History General Surgical History: Reports: Hysterectomy, Tubal ligation, Cholecystectomy , Other (BLADDER SX), Unknown - Family History Family History: Reports: Unknown - Social History Smoking Status: Current every day smoker, Heavy tobacco smoker Hx Substance Use: No Alcohol Screening: None Physical Exam - Physical Exam Appearance: Well-appearing, No pain distress, Well-nourished Eyes: GINO, EOMI, Conjunctiva clear ENT: Ears normal, Nose normal, Oropharynx normal Respiratory: Airway patent, Breath sounds clear, Breath sounds equal, Respirations nonlabored Cardiovascular: RRR, Pulses normal, No rub, No murmur GI/: Soft, No masses, Bowel sounds normal, No Organomegaly, Tender (minimal bilat lower abdomen but not suprapubic region ) Musculoskeletal: Normal strength, ROM intact, No edema, No calf tenderness Skin: Warm, Dry, Normal color Neurological: Sensation intact, Motor intact, Reflexes intact, Cranial nerves intact, Alert, Oriented Psychiatric: Affect appropriate, Mood appropriate Critical Care Note - Critical Care Note Total Time (mins): 0 Course - Course Hematology/Chemistry: 07/09/17 11:00 07/09/17 11:00 Orders, Labs, Meds: Lab Review 07/09/17 07/09/17 07/09/17 10:20 11:00 11:00 WBC 8.09 RBC 4.30 Hgb 13.4 Hct 40.1 MCV 93.3 MCH 31.2 H MCHC 33.4 RDW Coeff of Sorin 13.2 Plt Count 271 Immature Gran % (Auto) 0.2 Neut % (Auto) 44.4 Lymph % (Auto) 39.7 [place] % (Auto) 10.4 H Eos % (Auto) 4.6 Baso % (Auto) 0.7 Immature Gran # (Auto) 0.0 Neut # (Auto) 3.6 Lymph # (Auto) 3.2 [place] # (Auto) 0.8 Eos # (Auto) 0.4 Baso # (Auto) 0.1 Sodium 138 Potassium 4.0 Chloride 104 Carbon Dioxide 25 Anion Gap 13.0 BUN 15 Creatinine 0.97 Estimated GFR (MDRD) 59.00 BUN/Creatinine Ratio 15.46 Glucose 119 H Calcium 9.8 Total Bilirubin 0.3 AST 24 ALT 37 Alkaline Phosphatase 40 L Total Protein 7.0 Albumin 3.5 Globulin 3.5 Albumin/Globulin Ratio 1.00 Urine Color Yellow Urine Clarity Clear Urine pH 6.0 Ur Specific [place] 1.010 Urine Protein Negative Urine Glucose (UA) 2+ Urine Ketones Negative Urine Blood Trace-intact Urine Nitrite Negative Urine Bilirubin Negative Urine Urobilinogen 0.2 Ur Leukocyte Esterase Negative Urine Microscopic RBC 0-2 Urine Microscopic WBC 0-2 Ur Squamous Epith Cells 0-2 Orders Category Date Time Status CBC W/ AUTO DIFF Stat LAB 07/09/17 11:00 Completed CMP [COMPREHENSIVE METABOLIC PANEL] Stat LAB 07/09/17 11:00 Completed UA [URINALYSIS C & S IF INDICATED] Stat LAB 07/09/17 10:20 Completed Vital Signs: Temp Pulse Resp BP Pulse Ox 07/09/17 09:59 98.1 F 86 16 135/87 95 Departure - Departure Time of Disposition: 12:05 Disposition: HOME SELF-CARE Discharge Problem: Monilial vulvitis Instructions: Yeast Infection (ED) Condition: Fair Pt referred to PMD for follow-up: Yes (1 week) IPMP verified?: No Additional Instructions: Cleanse area as directed Reduce soft drink intake increase oral clear liquids Begin use of probiotic daily use monistat cream for 7 days Allergies/Adverse Reactions: Allergies codeine Adverse Reaction (Verified 07/09/17 10:05) FEELS FUNNY morphine Adverse Reaction (Verified 07/09/17 10:05) Itching sulfamethoxazole [From Bactrim] Adverse Reaction (Verified 07/09/17 10:05) PASSED OUT trimethoprim [From Bactrim] Adverse Reaction (Verified 07/09/17 10:05) PASSED OUT Home Medications: Ambulatory Orders Cyclobenzaprine HCl 10 mg PO BID PRN #30 tab-cap 02/16/16 Miconazole Nitrate [Monistat 7] 44 gm VAGINAL DAILY 7 Days #1 [id number].[email or web address] Disposition Discussed With: Patient
== END 2017-07-09 12:29 | disposition home or self-care (01) ==
LOC: ED 09:58
DX: B37.3 Candidiasis of vulva and vagina (principal); F17.210 Nicotine dependence, cigarettes, uncomplicated
CPT/HCPCS: 36415; 80053; 81001; 85025; 99283

== ENCOUNTER 2017-08-03 11:09 | Outpatient (CLI) ==
[2012-07-24 09:18] VITALS: TEMP 99.1
--- NOTE | 2017-08-03 12:12 | DI ---
EXAM: Three views of the lumbar spine. History: Lower back pain. Comparison: Lumbar spine radiograph 04/28/2015 Findings: Atherosclerotic vascular calcifications. Stable minimal 3 mm anterolisthesis of L4 on L5. No change in the mild to moderate degenerative disc disease at L4-L5. Mild disc space narrowing se en elsewhere. Moderate facet hypertrophy again seen within the lower lumbar spine. Impression: 1. No acute fracture. 2. Atherosclerotic vascular calcifications. 3. No change in the minimal anterolisthesis of L4 on L5. 4. Degenerative changes not significantly changed compared to the prior study.
== END 2017-08-03 11:10 | disposition home or self-care (01) ==
LOC: RAD 11:09
PROVIDERS: ATTEND Emergency Medicine
DX: M54.5 Low back pain (principal); G89.29 Other chronic pain; I10 Essential (primary) hypertension; E78.5 Hyperlipidemia, unspecified
CPT/HCPCS: 36415; 80053; 85025

== ENCOUNTER 2017-09-14 12:05 | Outpatient (CLI) ==
[2012-07-24 09:18] VITALS: TEMP 99.1
== END 2017-09-14 12:06 | disposition home or self-care (01) ==
LOC: LAB 12:05
PROVIDERS: ATTEND Emergency Medicine
DX: E11.69 Type 2 diabetes mellitus with other specified complication (principal); E78.5 Hyperlipidemia, unspecified; I10 Essential (primary) hypertension
CPT/HCPCS: 36415; 80061; 83036; 84443

== ENCOUNTER 2017-09-24 19:30 | Outpatient (CLI) ==
[2012-07-24 09:18] VITALS: TEMP 99.1
== END 2017-09-24 19:46 | disposition short-term general hospital (02) ==
LOC: AMBL 19:30
PROVIDERS: ATTEND Family Medicine
DX: R07.1 Chest pain on breathing (principal); R10.12 Left upper quadrant pain; E11.9 Type 2 diabetes mellitus without complications; I10 Essential (primary) hypertension; E78.5 Hyperlipidemia, unspecified; R53.1 Weakness; Z86.73 Personal history of transient ischemic attack (TIA), and cerebral infarction without residual deficits; Z79.899 Other long term (current) drug therapy

== ENCOUNTER 2017-11-12 12:17 | Emergency (ER) ==
[2017-11-12 12:21] VITALS: BP 172/90; TEMP 98.2; BMI 26.6
--- NOTE | 2017-11-12 13:05 | ED.PDOC ---
General ED Provider: Dr. ELIUD SIDDIQUI Chief Complaint: Bite Stated Complaint: Spider bite- back of left thigh. Onset yesterday/ Put on her slacks and felt a burning stinging sensation to her lt thigh. Area itches and dial. No other systemic complaints Time Seen by Physician: 12:40 Mode of Arrival: Walk-In Information Source: Patient Exam Limitations: No limitations Primary Care Provider: ERICA DIAZ Nursing and Triage Documentation Reviewed and Agree: Yes Does patient meet sepsis criteria?: No System Inflammatory Response Syndrome: Not Applicable Sepsis Protocol: For patient's 13 years and over: Temp is 96.8 and below OR 101 and greater Pulse >90 BPM Resp >20/minute Acutely Altered Mental Status Are patient's symptoms suggestive of a new infection, such as: -Pneumonia -Skin, Soft Tissue -Endocarditis -UTI -Bone, Joint Infection -Implantable Device -Acute Abdominal Infection -Wound Infection -Meningitis -Blood Stream Catheter Infection -Unknown Environmental Complaint Exam - Allergic Reaction Complaint/Exam Onset/Duration: yesterday Symptoms Are: Still present Timing: Constant Initial Severity: Moderate Current Severity: Moderate Location: Discrete (lt distal posterior thigh) Character: Present: Swelling, Pruritis, Pain Aggravating: Reports: Other (clothing) Alleviating: Reports: None Associated Signs and Symptoms: Reports: Lightheadedness. Denies: Difficulty breathing, Cough, Wheezing, Chest pain, Hoarseness, Throat tightening, Throat swelling, Rash, Abdominal pain, Diaphoresis, Syncope, Nausea, Vomiting Possible Reaction To: Reports: Insect Diphenhydramine Prior to Arrival: No Epinephrine Auto Injector Prior to Arrival: No Respiratory Distress: Mild Findings: Present: Hoarseness Body Picture: 1 - Site of oblong area of redness and central darkness of tissue.Measures 2 X 1.5 cm; induration and tender. Dry. No wound secretion Differential Diagnoses: Local Allergic Reaction (poss brown recluse spider bite) Review of Systems - Review Of Systems Constitutional: Reports: No symptoms Eyes: Reports: No symptoms Ears, Nose, Mouth, Throat: Reports: No symptoms Respiratory: Reports: No symptoms Cardiac: Reports: No symptoms GI: Reports: No symptoms : Reports: No symptoms Musculoskeletal: Reports: No symptoms Skin: Reports: No symptoms, Lesions Neurological: Reports: No symptoms Endocrine: Reports: No symptoms Hematologic/Lymphatic: Reports: No symptoms All Other Systems: Reviewed and Negative Past Medical History - Past Medical History Previously Healthy: No Endocrine: Reports: DM 2, Dyslipidemia Cardiovascular: Reports: CAD, [place] (HEART ATTACK 2007), Hypertension Respiratory: Reports: None Hematological: Reports: None Gastrointestinal: Reports: GERD Genitourinary: Reports: None Neuro/Psych: Reports: None Musculoskeletal: Reports: None Cancer: Reports: None Last Menstrual Period: none Other Pertinent Past Medical History: HEART ATTACK 2007 - Surgical History General Surgical History: Reports: Hysterectomy, Tubal ligation, Cholecystectomy , Other (BLADDER SX), Unknown - Family History Family History: Reports: Unknown - Social History Smoking Status: Current every day smoker, Heavy tobacco smoker Hx Substance Use: No Alcohol Screening: None Physical Exam - Physical Exam Appearance: Well-appearing, No pain distress, Well-nourished Eyes: GINO, EOMI, Conjunctiva clear ENT: Ears normal, Nose normal, Oropharynx normal Respiratory: Airway patent, Breath sounds clear, Breath sounds equal, Respirations nonlabored Cardiovascular: RRR, Pulses normal, No rub, No murmur GI/: Soft, Nontender, No masses, Bowel sounds normal, No Organomegaly Musculoskeletal: Normal strength, ROM intact, No edema, No calf tenderness Skin: Warm (area as described lt posterior thigh), Dry, Normal color Neurological: Sensation intact, Motor intact, Reflexes intact, Cranial nerves intact, Alert, Oriented Psychiatric: Affect appropriate, Mood appropriate Critical Care Note - Critical Care Note Total Time (mins): 0 Course - Course Hematology/Chemistry: 11/12/17 13:20 11/12/17 13:20 Orders, Labs, Meds: Lab Review 11/12/17 11/12/17 11/12/17 13:20 13:20 13:20 WBC 7.90 RBC 4.52 Hgb 13.8 Hct 41.9 MCV 92.7 MCH 30.5 MCHC 32.9 RDW Coeff of Sorin 13.3 Plt Count 251 Immature Gran % (Auto) 0.1 Neut % (Auto) 44.3 Lymph % (Auto) 37.2 [place] % (Auto) 12.3 H Eos % (Auto) 5.2 Baso % (Auto) 0.9 Immature Gran # (Auto) 0.0 Neut # (Auto) 3.5 Lymph # (Auto) 2.9 [place] # (Auto) 1.0 Eos # (Auto) 0.4 Baso # (Auto) 0.1 PT 9.5 INR 0.95 APTT 26.4 Sodium 137.4 Potassium 3.67 Chloride 102.1 Carbon Dioxide 31.2 H Anion Gap 7.77 BUN 11.1 Creatinine 0.78 Estimated GFR (MDRD) 75.00 BUN/Creatinine Ratio 14.23 Glucose 101.0 Calcium 9.44 Magnesium 1.68 Total Bilirubin 0.16 L AST 30.1 ALT 28.7 Alkaline Phosphatase 65.5 Total Creatine Kinase 130.6 CK-MB (CK-2) 1.440 CK-MB (CK-2) % 1.1000 Total Protein 7.58 Albumin 4.17 Globulin 3.41 Albumin/Globulin Ratio 1.22 Urine Color Urine Clarity Urine pH Ur Specific [place] Urine Protein Urine Glucose (UA) Urine Ketones Urine Blood Urine Nitrite Urine Bilirubin Urine Urobilinogen Ur Leukocyte Esterase 11/12/17 13:20 WBC RBC Hgb Hct MCV MCH MCHC RDW Coeff of Sorin Plt Count Immature Gran % (Auto) Neut % (Auto) Lymph % (Auto) [place] % (Auto) Eos % (Auto) Baso % (Auto) Immature Gran # (Auto) Neut # (Auto) Lymph # (Auto) [place] # (Auto) Eos # (Auto) Baso # (Auto) PT INR APTT Sodium Potassium Chloride Carbon Dioxide Anion Gap BUN Creatinine Estimated GFR (MDRD) BUN/Creatinine Ratio Glucose Calcium Magnesium Total Bilirubin AST ALT Alkaline Phosphatase Total Creatine Kinase CK-MB (CK-2) CK-MB (CK-2) % Total Protein Albumin Globulin Albumin/Globulin Ratio Urine Color Yellow Urine Clarity Clear Urine pH 7.0 Ur Specific [place] 1.020 Urine Protein Negative Urine Glucose (UA) 1+ Urine Ketones Negative Urine Blood Negative Urine Nitrite Negative Urine Bilirubin Negative Urine Urobilinogen 0.2 Ur Leukocyte Esterase Negative Orders Category Date Time Status CBC W/ AUTO DIFF Stat LAB 11/12/17 13:20 Completed COMPREHENSIVE METABOLIC PANEL Stat LAB 11/12/17 13:20 Completed CPK [CREATINE KINASE] Stat LAB 11/12/17 13:20 Completed MAGNESIUM Stat LAB 11/12/17 13:20 Completed PARTIAL THROMBOPLASTIN TIME Stat LAB 11/12/17 13:20 Completed PT WITH INR Stat LAB 11/12/17 13:20 Completed UA [URINALYSIS C & S IF INDICATED] Stat LAB 11/12/17 13:20 Completed Dexamethasone 4 mg/ml Inj [Decadron 4 mg/ml Sdv] MEDS 11/12/17 13:07 Discontinued 4 mg IM ONCE STA Diphenhydramine HCl [Benadryl] MEDS 11/12/17 13:11 Discontinued 25 mg PO ONCE STA Diphenhydramine Inj [Benadryl] MEDS 11/12/17 13:07 Stop Req 25 mg IM ONCE STA Medications Discontinued Medications Generic Name Dose Route Start Last Admin Trade Name Freq PRN Reason Stop Dose Admin Dexamethasone Sodium Phosphate 4 mg 11/12/17 13:07 11/12/17 13:27 Decadron 4 Mg/Ml Sdv IM 11/12/17 13:08 4 mg ONCE STA Administration Diphenhydramine HCl 25 mg 11/12/17 13:07 11/12/17 13:46 Benadryl IM 11/12/17 13:08 Not Given ONCE STA Diphenhydramine HCl 25 mg 11/12/17 13:11 11/12/17 13:26 Benadryl PO 11/12/17 13:12 25 mg ONCE STA Administration Vital Signs: Temp Pulse Resp BP Pulse Ox 11/12/17 12:18 98.2 F 83 18 172/90 H 95 Departure - Departure Time of Disposition: 14:00 Disposition: HOME SELF-CARE Discharge Problem: Spider bite wound Instructions: Insect Bite or Sting (ED), Brown Recluse Spider Bite (ED) Condition: Good Pt referred to PMD for follow-up: Yes (1 week) IPMP verified?: No Additional Instructions: Localized wound care as directed Apply warm moist heat periodically Take Benadry 25 mg every 6 hrs for relief of itching and Keflex Prescriptions: Cephalexin [Keflex] 500 mg PO BID #14 capsule Allergies/Adverse Reactions: Allergies codeine Adverse Reaction (Verified 11/12/17 12:22) FEELS FUNNY morphine Adverse Reaction (Verified 11/12/17 12:22) Itching sulfamethoxazole [From Bactrim] Adverse Reaction (Verified 11/12/17 12:22) PASSED OUT trimethoprim [From Bactrim] Adverse Reaction (Verified 11/12/17 12:22) PASSED OUT Home Medications: Ambulatory Orders Cyclobenzaprine HCl 10 mg PO BID PRN #30 tab-cap 02/16/16 Cephalexin [Keflex] 500 mg PO BID #14 capsule 11/12/17 Disposition Discussed With: Patient Trauma/Injury Complaint Exam - Bite Injury Complaint/Exam Location of Bite: lt posterior thigh
[2017-11-12] MEDS ORDERED: DECADRON 4 MG/ML SDV IM STA (13:07)
[2017-11-12] MEDS ORDERED: BENADRYL IM STA (13:07)
[2017-11-12] MEDS ORDERED: BENADRYL PO STA (13:11)
== END 2017-11-12 14:23 | disposition home or self-care (01) ==
LOC: ED 12:17
DX: S70.362A Insect bite (nonvenomous), left thigh, initial encounter (principal); R42 Dizziness and giddiness; M79.652 Pain in left thigh; W57.XXXA Bitten or stung by nonvenomous insect and other nonvenomous arthropods, initial encounter
CPT/HCPCS: 36415; 80053; 81001; 82550; 82553; 83735; 85025; 85610; 85730; 96372; 99283

== ENCOUNTER 2017-12-15 12:00 | Outpatient (CLI) ==
[2012-07-24 09:18] VITALS: TEMP 99.1
== END 2017-12-15 12:01 | disposition home or self-care (01) ==
LOC: FCC-LAB 12:00
PROVIDERS: ATTEND Family Medicine
DX: E11.9 Type 2 diabetes mellitus without complications (principal)
CPT/HCPCS: 36415; 82043; 83037

== ENCOUNTER 2018-02-03 13:06 | Emergency (ER) ==
[2018-02-03 13:06] VITALS: BMI 26.6
[2018-02-03 13:11] VITALS: BP 127/85; TEMP 97.8
--- NOTE | 2018-02-03 14:49 | ED.PDOC ---
General ED Provider: Dr. ELIUD SIDDIQUI Chief Complaint: Vaginal Discharge/Swelling Stated Complaint: Vaginal Itching. Onset for past several days. Is a diabetic and tends to have recurrent yeast infections. States has a white non odorou discharge with itching to the vaginal region. Normally receives vaginal cream that allows for clearing. Time Seen by Physician: 14:45 Mode of Arrival: Walk-In Information Source: Patient Exam Limitations: No limitations, Other Primary Care Provider: ELVIRA GODWIN Nursing and Triage Documentation Reviewed and Agree: Yes Does patient meet sepsis criteria?: No System Inflammatory Response Syndrome: Not Applicable Sepsis Protocol: For patient's 13 years and over: Temp is 96.8 and below OR 101 and greater Pulse >90 BPM Resp >20/minute Acutely Altered Mental Status Are patient's symptoms suggestive of a new infection, such as: -Pneumonia -Skin, Soft Tissue -Endocarditis -UTI -Bone, Joint Infection -Implantable Device -Acute Abdominal Infection -Wound Infection -Meningitis -Blood Stream Catheter Infection -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 Exam - Vaginal Bleeding Complaint/Exam Onset/Duration: 2 days of vaginal itching Symptoms Are: Still present Timing: Intermittent Initial Severity: Moderate Current Severity: None (no abnormal bleeding) Character: Denies: Bright red Review of Systems - Review Of Systems Constitutional: Reports: No symptoms Eyes: Reports: No symptoms Ears, Nose, Mouth, Throat: Reports: No symptoms Respiratory: Reports: No symptoms Cardiac: Reports: No symptoms GI: Reports: No symptoms : Reports: Burning, Other (Vaginal irritation ) Musculoskeletal: Reports: No symptoms Skin: Reports: No symptoms Neurological: Reports: No symptoms Endocrine: Reports: No symptoms Hematologic/Lymphatic: Reports: No symptoms All Other Systems: Reviewed and Negative Past Medical History - Past Medical History Previously Healthy: No Endocrine: Reports: DM 2, Dyslipidemia Cardiovascular: Reports: CAD, [place] (HEART ATTACK 2007), Hypertension Respiratory: Reports: None Hematological: Reports: None Gastrointestinal: Reports: GERD Genitourinary: Reports: None Neuro/Psych: Reports: None Musculoskeletal: Reports: None Cancer: Reports: None Last Menstrual Period: hysterectomy Other Pertinent Past Medical History: HEART ATTACK 2007 - Surgical History General Surgical History: Reports: Hysterectomy, Tubal ligation, Cholecystectomy , Other (BLADDER SX), Unknown - Family History Family History: Reports: Unknown - Social History Smoking Status: Current every day smoker, Heavy tobacco smoker Hx Substance Use: No Alcohol Screening: None Physical Exam - Physical Exam Appearance: Well-appearing, No pain distress, Well-nourished Ill-appearing: None Pain Distress: None Eyes: GINO, EOMI, Conjunctiva clear ENT: Ears normal, Nose normal, Oropharynx normal Neck: Supple Respiratory: Airway patent, Breath sounds clear, Breath sounds equal, Respirations nonlabored Cardiovascular: RRR, Pulses normal, No rub, No murmur GI/: Soft, Nontender, No masses, Bowel sounds normal, No Organomegaly Musculoskeletal: Normal strength, ROM intact, No edema, No calf tenderness Skin: Warm, Dry, Normal color Neurological: Sensation intact, Motor intact, Reflexes intact, Cranial nerves intact, Alert, Oriented Psychiatric: Affect appropriate, Mood appropriate Critical Care Note - Critical Care Note Total Time (mins): 0 Course - Course Orders, Labs, Meds: Lab Review 02/03/18 14:53 Urine Color Yellow Urine Clarity Clear Urine pH 5.5 Ur Specific [place] <=1.005 Urine Protein Negative Urine Glucose (UA) 2+ Urine Ketones Negative Urine Blood Negative Urine Nitrite Negative Urine Bilirubin Negative Urine Urobilinogen 0.2 Ur Leukocyte Esterase Negative Orders Category Date Time Status UA [URINALYSIS C & S IF INDICATED] Stat LAB 02/03/18 14:53 Completed Vital Signs: Temp Pulse Resp BP Pulse Ox 02/03/18 13:06 97.8 F 69 20 127/85 93 L Departure - Departure Time of Disposition: 16:15 Disposition: HOME SELF-CARE Discharge Problem: Vaginitis and vulvovaginitis Instructions: Vaginitis (ED) Condition: Fair Pt referred to PMD for follow-up: Yes (1 wk) IPMP verified?: No Prescriptions: Miconazole Nitrate [Monistat 7] 45 gm VG DAILY #1 tube Allergies/Adverse Reactions: Allergies codeine Adverse Reaction (Verified 02/03/18 13:11) FEELS FUNNY morphine Adverse Reaction (Verified 02/03/18 13:11) Itching sulfamethoxazole [From Bactrim] Adverse Reaction (Verified 02/03/18 13:11) PASSED OUT trimethoprim [From Bactrim] Adverse Reaction (Verified 02/03/18 13:11) PASSED OUT Home Medications: Ambulatory Orders Cyclobenzaprine HCl 10 mg PO BID PRN #30 tab-cap 02/16/16 Miconazole Nitrate [Monistat 7] 45 gm VG DAILY #1 tube 02/03/18 Disposition Discussed With: Patient Complaint Exam - Complaint/Exam Patient Complains of: Reports: Vaginal discharge (and itching) Symptoms Are: Still present Timing: Intermittent Initial Severity: Moderate Current Severity: Moderate Location of Pain: Reports: None Aggravating: Reports: None Alleviating: Reports: None Associated Signs and Symptoms: Reports: Vaginal discharge Related History: Reports: Similar episode Abdominal Findings: Present: None Differential Diagnoses: Other (vaginits)
== END 2018-02-03 16:23 | disposition home or self-care (01) ==
LOC: ED 13:06
DX: N76.0 Acute vaginitis (principal); E11.9 Type 2 diabetes mellitus without complications; F17.210 Nicotine dependence, cigarettes, uncomplicated
CPT/HCPCS: 81001; 99282

== ENCOUNTER 2018-04-27 13:19 | Emergency (ER) | payer MEDICAID, OTHER ==
[2018-04-27 13:27] VITALS: BP 153/83; TEMP 98.6; BMI 25.0
--- NOTE | 2018-04-27 14:36 | DI ---
EXAM: CHEST FRONTAL AND LATERAL VIEWS HISTORY: Cough. COMPARISON: 05/26/2015 FINDINGS: Heart size and mediastinal contour remain within normal limits. No acute infiltrates. Normal vascularity with no pleural fluid or pneumothorax. The bony thorax has no acute finding. IMPRESSION: No acute process.
--- NOTE | 2018-04-27 14:52 | CT ---
EXAM: CT of the head without contrast History: Headache and dizziness. Technique: Multiplanar CT images through the head were obtained without the administration of IV con trast Findings: The visualized paranasal sinuses and mastoid air cells are clear in general. No acute jose varial abnormalities. Intracranially the ventricular and cisternal spaces are normal in size, shape and configuration for a patient of this age. No dominant mass or midline shift. No hydrocephalous. No acute intracranial hemorrhage or abnormal extraaxial fluid collections. Stable benign coarse calcifications along the f daljit. Impression: No acute intracranial process. No change compared to the prior study.
--- NOTE | 2018-04-27 15:56 | ED.PDOC ---
General ED Provider: Dr. ADONAY TONG Chief Complaint: Dizziness Stated Complaint: DIZZINESS Time Seen by Physician: 13:30 Mode of Arrival: Walk-In Information Source: Patient Exam Limitations: No limitations Primary Care Provider: ELVIRA GODWIN Nursing and Triage Documentation Reviewed and Agree: Yes Does patient meet sepsis criteria?: No If yes, has appropriate treatment been initiated?: No System Inflammatory Response Syndrome: Not Applicable Sepsis Protocol: For patient's 13 years and over: Temp is 96.8 and below OR 101 and greater Pulse >90 BPM Resp >20/minute Acutely Altered Mental Status Are patient's symptoms suggestive of a new infection, such as: -Pneumonia -Skin, Soft Tissue -Endocarditis -UTI -Bone, Joint Infection -Implantable Device -Acute Abdominal Infection -Wound Infection -Meningitis -Blood Stream Catheter Infection -Unknown Review of Systems - Review Of Systems Constitutional: Reports: No symptoms Eyes: Reports: No symptoms Ears, Nose, Mouth, Throat: Reports: No symptoms Respiratory: Reports: No symptoms Cardiac: Reports: No symptoms GI: Reports: No symptoms : Reports: No symptoms Musculoskeletal: Reports: No symptoms Skin: Reports: No symptoms Neurological: Reports: Other (DIZZINESS ) Endocrine: Reports: No symptoms Hematologic/Lymphatic: Reports: No symptoms All Other Systems: Reviewed and Negative Past Medical History - Past Medical History Previously Healthy: No Endocrine: Reports: DM 2, Dyslipidemia Cardiovascular: Reports: CAD, [place] (HEART ATTACK 2007), Hypertension Respiratory: Reports: None Hematological: Reports: None Gastrointestinal: Reports: GERD Genitourinary: Reports: None Neuro/Psych: Reports: None Musculoskeletal: Reports: None Cancer: Reports: None Last Menstrual Period: unknown Other Pertinent Past Medical History: HEART ATTACK 2007 - Surgical History General Surgical History: Reports: Hysterectomy, Tubal ligation, Cholecystectomy , Other (BLADDER SX), Unknown - Family History Family History: Reports: Unknown - Social History Smoking Status: Current every day smoker, Heavy tobacco smoker Hx Substance Use: No Alcohol Screening: None Physical Exam - Physical Exam Appearance: Well-appearing, No pain distress, Well-nourished Eyes: GINO, EOMI, Conjunctiva clear ENT: Ears normal, Nose normal, Oropharynx normal Respiratory: Airway patent, Breath sounds clear, Breath sounds equal, Respirations nonlabored Cardiovascular: RRR, Pulses normal, No rub, No murmur GI/: Soft, Nontender, No masses, Bowel sounds normal, No Organomegaly Musculoskeletal: Normal strength, ROM intact, No edema, No calf tenderness Skin: Warm, Dry, Normal color Neurological: Sensation intact, Motor intact, Reflexes intact, Cranial nerves intact, Alert, Oriented Psychiatric: Affect appropriate, Mood appropriate - NIH Stroke Scale 1a. Level of Consciousness: 0=Alert and keenly responsive 1b. Level of Consciousness Questions: 0=Answers correctly to two questions 1c. Level of Consciousness Commands: 0=Performs two tasks correctly 2. Best Gaze: 0=Normal 3. Visual: 0=No visual loss 4. Facial Palsy: 0=Normal 5a. Motor Left Arm: 0=No drift,arm holds 90 degrees for 10 sec., leg 30 degrees for 5 sec. 5b. Motor Right Arm: 0=No drift,arm holds 90 degrees for 10 sec., leg 30 degrees for 5 sec. 6a. Motor Left Le=No drift,arm holds 90 degrees for 10 sec., leg 30 degrees for 5 sec. 6b. Motor Right Le=No drift,arm holds 90 degrees for 10 sec., leg 30 degrees for 5 sec. 7. Limb Ataxia: 0=Absent 8. Sensory: 0=Normal 10. Dysarthria: 0=Normal 11. Extincion and Inattention: 0=Normal Stroke Scale Total: 0 Interpretation - Radiology Interpretation Radiology Interpretation By: Radiologist Radiology Results: Negative Exam Interpreted: CXR, CT Scan (HEAD NEGATIVE) Re-Evaluation - Re-Evaluation Time of Re-Evaluation: 15:00 Vital Signs Stable: Yes Pain Level: 0 Appearance: NAD Lungs: Clear Skin: Warm and Dry Neuro: Alert and Oriented X3 CV: RRR Additional Comments: NEURO NONEFOCAL - Re-Evaluation Time of Re-Evaluation: 15:56 Status: Improved Vital Signs Stable: Yes Pain Level: 0 Appearance: NAD Skin: Warm and Dry Neuro: Alert and Oriented X3 CV: RRR Critical Care Note - Critical Care Note Total Time (mins): 0 Course - Course Hematology/Chemistry: 04/27/18 14:10 04/27/18 14:10 Orders, Labs, Meds: Lab Review 04/27/18 04/27/18 04/27/18 14:10 14:10 14:10 WBC 9.33 RBC 4.45 Hgb 13.9 Hct 41.4 MCV 93.0 MCH 31.2 H MCHC 33.6 RDW Coeff of Sorin 13.2 Plt Count 282 Immature Gran % (Auto) 0.2 Neut % (Auto) 53.8 Lymph % (Auto) 33.5 [place] % (Auto) 8.9 Eos % (Auto) 3.2 Baso % (Auto) 0.4 Immature Gran # (Auto) 0.0 Neut # (Auto) 5.0 Lymph # (Auto) 3.1 [place] # (Auto) 0.8 Eos # (Auto) 0.3 Baso # (Auto) 0.0 PT 9.5 INR 0.95 APTT 25.9 Sodium 138.7 Potassium 4.05 Chloride 104.0 Carbon Dioxide 25.9 Anion Gap 12.85 BUN 13.8 Creatinine 0.71 Estimated GFR (MDRD) 84.00 BUN/Creatinine Ratio 19.43 Glucose 125.4 H Calcium 9.91 Total Bilirubin 0.26 AST 28.2 ALT 26.8 Alkaline Phosphatase 52.6 L Total Creatine Kinase 199.3 H CK-MB (CK-2) 2.430 H CK-MB (CK-2) % 1.2100 Troponin I < 0.012 Total Protein 7.76 Albumin 4.33 Globulin 3.43 Albumin/Globulin Ratio 1.26 TSH 2.000 Free T4 Urine Color Urine Clarity Urine pH Ur Specific [place] Urine Protein Urine Glucose (UA) Urine Ketones Urine Blood Urine Nitrite Urine Bilirubin Urine Urobilinogen Ur Leukocyte Esterase Influ A Molecular Assay Influ B Molecular Assay 04/27/18 04/27/18 04/27/18 14:10 14:10 14:10 WBC RBC Hgb Hct MCV MCH MCHC RDW Coeff of Sorin Plt Count Immature Gran % (Auto) Neut % (Auto) Lymph % (Auto) [place] % (Auto) Eos % (Auto) Baso % (Auto) Immature Gran # (Auto) Neut # (Auto) Lymph # (Auto) [place] # (Auto) Eos # (Auto) Baso # (Auto) PT INR APTT Sodium Potassium Chloride Carbon Dioxide Anion Gap BUN Creatinine Estimated GFR (MDRD) BUN/Creatinine Ratio Glucose Calcium Total Bilirubin AST ALT Alkaline Phosphatase Total Creatine Kinase CK-MB (CK-2) CK-MB (CK-2) % Troponin I Total Protein Albumin Globulin Albumin/Globulin Ratio TSH Free T4 1.14 Urine Color Yellow Urine Clarity Clear Urine pH 5.5 Ur Specific [place] 1.010 Urine Protein Negative Urine Glucose (UA) 2+ Urine Ketones Negative Urine Blood Negative Urine Nitrite Negative Urine Bilirubin Negative Urine Urobilinogen 0.2 Ur Leukocyte Esterase Negative Influ A Molecular Assay Negative by naat Influ B Molecular Assay Negative by naat Orders Category Date Time Status EKG-(ED ONLY) Stat CARDIO 04/27/18 14:00 Completed EKG-(ED ONLY) Stat CARDIO 04/27/18 15:36 Stop Req CBC W/ AUTO DIFF Stat LAB 04/27/18 14:10 Completed COMPREHENSIVE METABOLIC PANEL Stat LAB 04/27/18 14:10 Completed CREATINE KINASE Stat LAB 04/27/18 14:10 Completed FLU A/B MOLECULAR Stat LAB 04/27/18 14:10 Completed FREE T4 (FREE THYROXINE) Stat LAB 04/27/18 14:10 Completed PARTIAL THROMBOPLASTIN TIME Stat LAB 04/27/18 14:10 Completed PT WITH INR Stat LAB 04/27/18 14:10 Completed THYROID STIMULATING HORMONE Stat LAB 04/27/18 14:10 Completed TROPONIN I Stat LAB 04/27/18 14:10 Completed URINALYSIS C & S IF INDICATED Stat LAB 04/27/18 14:10 Completed CHEST, 2 VIEWS PA & LAT Stat RADS 04/27/18 14:[address] HEAD W/O CONTRAST Stat RADS 04/27/18 14:00 Completed Vital Signs: Temp Pulse Resp BP Pulse Ox 04/27/18 13:21 98.6 F 69 20 153/83 H 95 Departure - Departure Time of Disposition: 15:56 Disposition: HOME SELF-CARE Discharge Problem: Dizziness Instructions: Vertigo (ED), Lightheadedness (ED), Dizziness (ED), Vertigo (DC) Condition: Good Pt referred to PMD for follow-up: Yes IPMP verified?: No Additional Instructions: Please call your Family Physician as soon as possible to schedule a follow-up appointment.YOUR BRAIN SCAN IS NEGATIVE , IF YOUR DIZZINESS GETS WORSE PLEASE RETURNPlease call your Family Physician as soon as possible to schedule a follow -up appointment. Allergies/Adverse Reactions: Allergies codeine Adverse Reaction (Verified 02/03/18 13:11) FEELS FUNNY morphine Adverse Reaction (Verified 02/03/18 13:11) Itching sulfamethoxazole [From Bactrim] Adverse Reaction (Verified 02/03/18 13:11) PASSED OUT trimethoprim [From Bactrim] Adverse Reaction (Verified 02/03/18 13:11) PASSED OUT Home Medications: Ambulatory Orders Cyclobenzaprine HCl 10 mg PO BID PRN #30 tab-cap 02/16/16 Disposition Discussed With: Patient
== END 2018-04-27 16:30 | disposition home or self-care (01) ==
LOC: ED 13:19
DX: R42 Dizziness and giddiness (principal); E11.9 Type 2 diabetes mellitus without complications; E78.5 Hyperlipidemia, unspecified; I25.10 Atherosclerotic heart disease of native coronary artery without angina pectoris; I25.2 Old myocardial infarction; I10 Essential (primary) hypertension; F17.210 Nicotine dependence, cigarettes, uncomplicated
CPT/HCPCS: 36415; 80053; 81001; 82550; 82553; 84439; 84443; 84484; 85025; 85610; 85730; 87502; 93005; 93010; 99283

== ENCOUNTER 2018-07-23 16:18 | Outpatient (CLI) ==
[2012-07-24 09:18] VITALS: TEMP 99.1
== END 2018-07-23 16:19 | disposition home or self-care (01) ==
LOC: RHC-LAB 16:18 → FCC-LAB 16:19
PROVIDERS: ATTEND Family Medicine
DX: E11.69 Type 2 diabetes mellitus with other specified complication (principal); E78.2 Mixed hyperlipidemia
CPT/HCPCS: 36415; 80061; 83037

== ENCOUNTER 2018-08-01 20:20 | Outpatient (CLI) ==
[2012-07-24 09:18] VITALS: TEMP 99.1
== END 2018-08-01 20:38 | disposition short-term general hospital (02) ==
LOC: AMBL 20:20
PROVIDERS: ATTEND Family Medicine
DX: R07.9 Chest pain, unspecified (principal); R06.02 Shortness of breath; E11.9 Type 2 diabetes mellitus without complications; I25.2 Old myocardial infarction; I10 Essential (primary) hypertension; F17.210 Nicotine dependence, cigarettes, uncomplicated; Z86.73 Personal history of transient ischemic attack (TIA), and cerebral infarction without residual deficits